=== PATIENT | male | born 1990 | race Two or more races ===

== ENCOUNTER 2023-07-15 21:48 | Emergency (ER) | payer SELFPAY ==
[~2023-07-15] VITALS: Ht 154.9 cm; Wt 74.5 kg
[2023-07-15 22:30] VITALS: TEMP 98.5
[2023-07-15 23:30] VITALS: BP 141/75; PULSE 85; RESP 16
[2023-07-15] MEDS: DiphenhydrAMINE HCL 50 MG/ML VIAL IVP ONE (23:42)
[2023-07-15] MEDS: PredniSONE 20 MG TABLET PO ONE (23:42)
[2023-07-16] MEDS ORDERED: DIPH25CA85 PO (00:11)
[2023-07-16] MEDS ORDERED: PRED-554 PO (00:11)
== END 2023-07-16 00:33 | disposition home or self-care (01) ==
LOC: EMS 21:51
DX: T78.40XA Allergy, unspecified, initial encounter (principal); F17.210 Nicotine dependence, cigarettes, uncomplicated; X58.XXXA Exposure to other specified factors, initial encounter
CPT/HCPCS: 99283; 96374; J1200; J7512